=== PATIENT | female | born 1990 | race American Indian/Alaskan Native ===

== ENCOUNTER 2018-12-07 03:46 | Emergency (ER) | payer SELFPAY ==
--- NOTE | 2018-12-07 04:35 | XRay Report ---
CHEST 1 VIEW INDICATION / CLINICAL INFORMATION: Chest Pain. COMPARISON: None available. FINDINGS: SUPPORT DEVICES: None. HEART / MEDIASTINUM: No significant abnormality. LUNGS / PLEURA: No significant pulmonary or pleural abnormality. No pneumothorax. ADDITIONAL FINDINGS: No significant additional findings. IMPRESSION: No acute pulmonary or pleural abnormality. Signer Name: Aubrey Jimenez MD FACR Signed: 12/07/2018 4:30 AM Workstation Name: [id number]
[2018-12-07] MEDS ORDERED: CARAFATE PO ONE (06:38)
[2018-12-07] MEDS ORDERED: ZOFRAN ORAL LIQ PO ONE (06:38)
[2018-12-07 07:33] LABS: Hematocrit 39.9 % (30.3-42.9); Hemoglobin 13.5 gm/dl (10.1-14.3); Mean Corpuscular HGB Conc 34 % (30-34); Mean Corpuscular Volume 94 fl (79-97); Platelet Count 367 K/mm3 (140-440); Red Blood Count 4.26 M/mm3 (3.65-5.03); Red Cell Distribution Width 12.8 % (13.2-15.2)
[2018-12-07 07:51] LABS: BUN/Creatinine Ratio 15; Blood Urea Nitrogen 9 mg/dL (7-17); Calcium 8.5 mg/dL (8.4-10.2); Hemolysis Index 4
--- NOTE | 2018-12-07 08:51 | Emergency Department Report ---
ED Chest Pain HPI - General Chief Complaint: Chest Pain Stated Complaint: NAUSEA/EMESIS Time Seen by Provider: 12/07/18 06:08 Source: patient, EMS (ems notes not available at time of chart dictation), RN notes reviewed Mode of arrival: Stretcher Limitations: No Limitations - History of Present Illness Initial Comments: This is a 28-year-old female. This patient is not known to me previously. The patient reports that she does not have a primary care doctor. The patient reports that she is not . The patient reports a history of chronic heartburn The patient presents to the ER today with complaint of nontraumatic central and right-sided chest pain, pressure. The symptoms started at around 1:00 in the morning. Pressure does not ready to the back, arms and neck. There is no diaphoresis. There is no shortness of breath. There is positive nausea, vomiting. This is now resolved. The patient denies DVT, pulmonary embolus risk factors. Apparently, she consumed alcohol last night, took cocaine. This was recreational. There is no intention for self-harm. The patient denies other injuries other complaints. She felt improved after supportive and symptomatic therapy in the emergency room. MD Complaint: chest pain, other -: Sudden Onset: during rest, after eating, associated with drug use Pain Location: left chest, right chest Pain Radiation: none Severity: moderate Severity scale (0 -10): 10 Quality: aching Consistency: constant Improves With: nothing Worsens With: nothing re: nausea, vomting Aspirin use within the Past 7 Days: (0) No - Related Data On Oral Contraceptives: No Previous Rx's Medication Instructions Recorded Last Taken Type Aspirin [Aspirin BABY CHEW TAB] 81 mg PO QDAY #30 tab.chew 12/07/18 Unknown Rx Famotidine [Pepcid] 20 mg PO BID #60 tablet 12/07/18 Unknown Rx Allergies Allergy/AdvReac Type Severity Reaction Status Date / Time No Known Allergies Allergy Unverified 12/07/18 04:06 Heart Score - HEART Score History: Slightly suspicious EKG: Normal Age: < 45 Risk factors: 1-2 risk factors Troponin: < normal limit HEART Score: 1 - Critical Actions Critical Actions: 0-3 pts:0.9-1.7%risk of adverse cardiac event.Candidate for discharge ED Review of Systems ROS: Stated complaint: NAUSEA/EMESIS Other details as noted in HPI Constitutional: denies: fever Eyes: denies: eye discharge ENT: denies: epistaxis Respiratory: denies: cough Cardiovascular: chest pain Gastrointestinal: nausea, vomiting. denies: abdominal pain, hematemesis, melena, hematochezia Genitourinary: denies: dysuria Musculoskeletal: denies: back pain Skin: denies: lesions Neurological: weakness Psychiatric: anxiety. denies: suicidal thoughts ED Past Medical Hx - Past Medical History Previous Medical History?: No - Surgical History Past Surgical History?: No - Social History Smoking Status: Current Every Day Smoker Substance Use Type: Alcohol, Cocaine, Marijuana - Medications Home Medications: Home Medications Medication Instructions Recorded Confirmed Last Taken Type Aspirin [Aspirin BABY CHEW TAB] 81 mg PO QDAY #30 tab.chew 12/07/18 Unknown Rx Famotidine [Pepcid] 20 mg PO BID #60 tablet 12/07/18 Unknown Rx ED Physical Exam - General Limitations: No Limitations General appearance: alert, in no apparent distress, other (patient sleeping in stretcher, and in no acute distress) - Head Head exam: Present: atraumatic, normocephalic - Eye Eye exam: Present: normal appearance, EOMI. Absent: nystagmus - ENT ENT exam: Present: normal exam, normal orophraynx, mucous membranes moist, norm al external ear exam - Neck Neck exam: Present: normal inspection, full ROM. Absent: tenderness, meningismus - Respiratory Respiratory exam: Present: normal lung sounds bilaterally, other (there is no breast tenderness. There is no chest tenderness. The chest exam is unremarkable. Chaperoned by ADRYAN Villagran). Absent: respiratory distress, chest wall tenderness - Cardiovascular Cardiovascular Exam: Present: regular rate, normal rhythm, normal heart sounds. Absent: bradycardia, tachycardia, irregular rhythm, systolic murmur, diastolic murmur, rubs, gallop - GI/Abdominal GI/Abdominal exam: Present: soft. Absent: distended, tenderness, guarding, rebound, rigid, pulsatile mass - Extremities Exam Extremities exam: Present: normal inspection, full ROM, other (2+ pulses noted in the bilateral upper, lower extremities. Compartments soft. No long bony tenderness. The pelvis is stable.). Absent: pedal edema, joint swelling, calf tenderness - Back Exam Back exam: Present: normal inspection, full ROM. Absent: tenderness, CVA tenderness (R), CVA tenderness (L), paraspinal tenderness, vertebral tenderness - Neurological Exam Neurological exam: Present: alert, other (Extraocular movements intact. Tongue midline. No facial droop. Facial sensation intact to light touch in the V1, V2, V3 distribution bilaterally. 5 and 5 strength in 4 extremities.. Sensation is intact to light touch in 4 extremities.). Absent: motor sensory deficit - Psychiatric Psychiatric exam: Present: normal mood. Absent: suicidal ideation - Skin Skin exam: Present: warm, dry, intact, normal color. Absent: rash ED Course Vital Signs 12/07/18 12/07/18 12/07/18 04:00 05:35 05:48 Temperature 98.9 F Pulse Rate 72 65 65 Respiratory 20 16 20 Rate Blood Pressure 123/79 Blood Pressure 123/79 133/68 [Left] O2 Sat by Pulse 94 98 98 Oximetry 12/07/18 12/07/18 12/07/18 06:00 06:30 07:00 Temperature Pulse Rate 64 72 65 Respiratory 19 16 18 Rate Blood Pressure 118/73 128/82 Blood Pressure [Left] O2 Sat by Pulse 97 97 96 Oximetry 12/07/18 12/07/18 12/07/18 07:30 08:00 08:30 Temperature Pulse Rate 76 89 63 Respiratory 18 13 18 Rate Blood Pressure 125/72 121/58 108/58 Blood Pressure [Left] O2 Sat by Pulse 100 97 93 Oximetry DOC score - Doc Score Age > 65: (0) No Aspirin use within the Past 7 Days: (0) No 3 or more CAD Risk Factors: (0) No 2 or more Angina events in past 24 hrs: (0) No Known CAD with more than 50% Stenosis: (0) No Elevated Cardiac Markers: (0) No ST Deviation Greater than 0.5mm: (0) No DOC Score: 0 ED Medical Decision Making - Lab Data Result diagrams: 12/07/18 07:05 12/07/18 07:05 Vital Signs 12/07/18 12/07/18 12/07/18 04:00 05:35 05:48 Temperature 98.9 F Pulse Rate 72 65 65 Respiratory 20 16 20 Rate Blood Pressure 123/79 Blood Pressure 123/79 133/68 [Left] O2 Sat by Pulse 94 98 98 Oximetry 12/07/18 12/07/18 12/07/18 06:00 06:30 07:00 Temperature Pulse Rate 64 72 65 Respiratory 19 16 18 Rate Blood Pressure 118/73 128/82 Blood Pressure [Left] O2 Sat by Pulse 97 97 96 Oximetry 12/07/18 12/07/18 12/07/18 07:30 08:00 08:30 Temperature Pulse Rate 76 89 63 Respiratory 18 13 18 Rate Blood Pressure 125/72 121/58 108/58 Blood Pressure [Left] O2 Sat by Pulse 100 97 93 Oximetry Lab Results 12/07/18 12/07/18 12/07/18 Range/Units 07:05 07:05 07:05 WBC 12.4 H (4.5-11.0) K/mm3 RBC 4.26 (3.65-5.03) M/mm3 Hgb 13.5 (10.1-14.3) gm/dl Hct 39.9 (30.3-42.9) % MCV 94 (79-97) fl MCH 32 (28-32) pg MCHC 34 (30-34) % RDW 12.8 L (13.2-15.2) % Plt Count 367 (140-440) K/mm3 Sodium 141 (137-145) mmol/L Potassium 4.4 (3.6-5.0) mmol/L Chloride 107.0 (98-107) mmol/L Carbon Dioxide 25 (22-30) mmol/L Anion Gap 13 mmol/L BUN 9 (7-17) mg/dL Creatinine 0.6 L (0.7-1.2) mg/dL Estimated GFR > 60 ml/min BUN/Creatinine Ratio 15 % Glucose 90 (65-100) mg/dL Calcium 8.5 (8.4-10.2) mg/dL Magnesium 1.80 (1.7-2.3) mg/dL Total Creatine Kinase 115 (30-135) units/L Troponin T (0.00-0.029) ng/mL HCG, Quant (0-4) mIU/mL Salicylates < 0.3 L (2.8-20.0) mg/dL Acetaminophen (10.0-30.0) ug/mL Plasma/Serum Alcohol (0-0.07) % 12/07/18 12/07/18 12/07/18 Range/Units 07:05 07:05 07:05 WBC (4.5-11.0) K/mm3 RBC (3.65-5.03) M/mm3 Hgb (10.1-14.3) gm/dl Hct (30.3-42.9) % MCV (79-97) fl MCH (28-32) pg MCHC (30-34) % RDW (13.2-15.2) % Plt Count (140-440) K/mm3 Sodium (137-145) mmol/L Potassium (3.6-5.0) mmol/L Chloride (98-107) mmol/L Carbon Dioxide (22-30) mmol/L Anion Gap mmol/L BUN (7-17) mg/dL Creatinine (0.7-1.2) mg/dL Estimated GFR ml/min BUN/Creatinine Ratio % Glucose (65-100) mg/dL Calcium (8.4-10.2) mg/dL Magnesium (1.7-2.3) mg/dL Total Creatine Kinase (30-135) units/L Troponin T (0.00-0.029) ng/mL HCG, Quant < 2 (0-4) mIU/mL Salicylates (2.8-20.0) mg/dL Acetaminophen < 5.0 L (10.0-30.0) ug/mL Plasma/Serum Alcohol < 0.01 (0-0.07) % 12/07/18 12/07/18 Range/Units 07:05 08:10 WBC (4.5-11.0) K/mm3 RBC (3.65-5.03) M/mm3 Hgb (10.1-14.3) gm/dl Hct (30.3-42.9) % MCV (79-97) fl MCH (28-32) pg MCHC (30-34) % RDW (13.2-15.2) % Plt Count (140-440) K/mm3 Sodium (137-145) mmol/L Potassium (3.6-5.0) mmol/L Chloride (98-107) mmol/L Carbon Dioxide (22-30) mmol/L Anion Gap mmol/L BUN (7-17) mg/dL Creatinine (0.7-1.2) mg/dL Estimated GFR ml/min BUN/Creatinine Ratio % Glucose (65-100) mg/dL Calcium (8.4-10.2) mg/dL Magnesium (1.7-2.3) mg/dL Total Creatine Kinase (30-135) units/L Troponin T < 0.010 < 0.010 (0.00-0.029) ng/mL HCG, Quant (0-4) mIU/mL Salicylates (2.8-20.0) mg/dL Acetaminophen (10.0-30.0) ug/mL Plasma/Serum Alcohol (0-0.07) % - EKG Data -: EKG Interpreted by Me EKG shows normal: sinus rhythm Rate: normal - EKG Data When compared to previous EKG there are: previous EKG unavailable 12/07/18 08:50 EKG #1 shows a sinus rhythm, 72 bpm, normal axis, normal intervals, borderline atrial enlargement, the EKG is abnormal, EKG is not consistent with ST elevation myocardial infarction. EKG #2 appears to be unchanged from prior, nonspecific concave up ST abnormalities, question pericarditis - Radiology Data Radiology results: pending, report reviewed, image reviewed Two-view x-ray of the chest is unremarkable for acute disease - Medical Decision Making Differential diagnosis, including not limited to: GERD, gastritis, costochondritis, pneumonia, pericarditis, myocarditis, vasospasm, acute coronary syndrome Assessment and plan: 28-year-old female who is clinically sober at this time, does not meet 1013 criteria, low risk for major adverse cardiac event as pretty heart score, low risk by DOC score, no pulmonary embolism or DVT risk factors, low risk by well's criteria, perc negative with resolved chest pain, possibly in the context of alcohol and cocaine consumption. The patient is clinically sober at this time. She is advised to refrain from consuming alcohol and from consuming it in combination with cocaine. The patient has been observed here in this emergency room 4 hours without clinical decompensation. No active nausea or vomiting noted on my examination. Nursing team reports the patient is tolerating liquids. The patient does not appear to have an emergent medical condition at this time. The patient is medically suitable to be discharged to follow-up with an outpatient primary care doctor and/or [employer]. Critical care attestation.: If time is entered above; I have spent that time in minutes in the direct care of this critically ill patient, excluding procedure time. ED Disposition Clinical Impression: History of chest pain, History of cocaine abuse Disposition: DC-01 TO HOME OR SELFCARE Is pt being admited?: No Does the pt Need Aspirin: No Condition: Stable Additional Instructions: Please do not consume alcohol in combination with cocaine. Strongly recommend against any consumption or use of cocaine. Use of cocaine may cause stroke, heart attack, disability, paralysis, loss of quality of life. Avoid consumption of Motrin, ibuprofen, Naprosyn, Aleve, heavy, spicy foods. Follow-up with her primary care doctor or [employer] within the next 5-7 days. Return to the emergency room right away with it, worse or different symptoms, or symptoms not present on the initial emergency room evaluation. Referrals: [facility] [Provider Group] - 3-5 Days [facility] DIEGO DHILLON MD [Primary Care Provider] - 3-5 Days
[2018-12-07 09:20] VITALS: BP 103/63
== END 2018-12-07 09:17 | disposition home or self-care (01) ==
LOC: ED 03:46
DX: R07.89 Other chest pain (principal); R11.2 Nausea with vomiting, unspecified; F17.200 Nicotine dependence, unspecified, uncomplicated; F12.10 Cannabis abuse, uncomplicated; F14.10 Cocaine abuse, uncomplicated
CPT/HCPCS: 36415; 71045; 80048; 82550; 83735; 84484; 84702; 85027; 93005; 93010; 99284; Q0162; 80320; G0480